=== PATIENT | female | born 1980 | race Caucasian/White ===

== ENCOUNTER 2017-12-02 08:09 | Emergency (ER) | payer OTHER ==
[~2017-12-02] VITALS: Ht 162.6 cm; Wt 59.0 kg
[2017-12-02] MEDS ORDERED: AMOXICILLIN500 MG PO (11:01)
== END 2017-12-02 11:22 | disposition home or self-care (01) ==
LOC: ER 08:09
DX: B34.9 Viral infection, unspecified (principal); B30.8 Other viral conjunctivitis